=== PATIENT | female | born 1955 | race Caucasian/White ===

== ENCOUNTER 2019-09-17 08:31 | Emergency (ER) | payer OTHER ==
[~2019-09-17] VITALS: Ht 165.1 cm; Wt 67.3 kg
[2019-09-17] MEDS ORDERED: ULTRAM 50MG50 MG PO (08:56)
[2019-09-17] MEDS ORDERED: CYCLOBENZAPRINE5 MG PO (08:56)
[2019-09-17] MEDS ORDERED: KETOROLAC TROMETHAMINE 60 MG/2 ML VIAL IM ONE (09:00)
[2019-09-17] MEDS ORDERED: CYCLOBENZAPRINE HCL 10 MG TAB PO ONE (09:00)
[2019-09-17] MEDS ORDERED: KETOROLAC TROMETHAMINE 30 MG/ML VIAL ONE (09:12)
[2019-09-17] MEDS ORDERED: CYCLOBENZAPRINE HCL 10 MG TAB ONE (09:12)
[2019-09-17 09:21] VITALS: BP 177/94
== END 2019-09-17 09:20 | disposition home or self-care (01) ==
LOC: FSED 08:31
DX: M54.6 Pain in thoracic spine (principal); S29.012A Strain of muscle and tendon of back wall of thorax, initial encounter; M62.830 Muscle spasm of back; I10 Essential (primary) hypertension
CPT/HCPCS: 96372; 99283; J1885